=== PATIENT | male | born 1940 | race Caucasian/White ===

== ENCOUNTER → 2018-03-30 | Outpatient (CLI) | payer OTHER ==
--- NOTE | ~2018-03-30 | EKG ---
[place] [address] [facility] [employer] [place] [address] ELECTROCARDIOGRAM REPORT Name: MIR LONGORIA Room #: REG CLI [facility].#: [id number] Admission: 03/30/18 Attend Phys: Gail Fisher MD Discharge: Date of : 44 Report #: [id number] THIS REPORT FOR: //name// [facility] Test Date: 2018-03-30 Test Time: 11:59:48 Pat Name: MIR HIGUERA Department: Room: Gender: Face Hardener: Ravin CASIANO : 1940 Requested By: Gail Fisher Order Number: [id number] MD: Georgi Gomez Measurements Intervals [place] Rate: 74 P: 50 AR: 200 QRS: 263 QRSD: 94 T: 41 QT: 381 QTc: 423 Interpretive Statements Sinus rhythm Inferior infarct, old No previous ECG available for comparison Electronically Signed On 04-02-2018 7:55:26 CDT by Georgi Gomez [email or web address] <ELECTRONICALLY SIGNED> By: Georgi Gomez MD, [facility] 04/02/18 [id number] Georgi Gomez MD, FACC /EPI
[2018-03-30 11:38] LABS: HEMATOCRIT 48.8 % (42.0-52.0); HEMOGLOBIN 16.7 gm/dL (14.0-18.0); MCH 34.3 pg (26.0-34.0); MCHC 34.2 g/dL (28.0-37.0); MCV 100.2 fL (80.0-100.0); RBC 4.87 mil/uL (4.50-6.00); RDW 15.2 % (10.5-14.5); WBC 4.1 thou/uL (4.0-11.0)
[2018-03-30 11:56] LABS: ALBUMIN 3.9 g/dL (3.4-5.0); CALCIUM 9.3 mg/dL (8.5-10.1); CREATININE 1.5 mg/dL (0.7-1.3); MAGNESIUM 1.8 mg/dL (1.8-2.4); POTASSIUM 4.5 mmol/L (3.5-5.1); TOTAL BILIRUBIN 0.5 mg/dL (<0.1-1.0); TOTAL PROTEIN 7.2 g/dL (6.4-8.2)
== END ==
LOC: LABMALL 11:04
PROVIDERS: Internal Medicine Pulmonary Disease
DX: J32.9 Chronic sinusitis, unspecified (principal); J20.8 Acute bronchitis due to other specified organisms; J45.40 Moderate persistent asthma, uncomplicated; M47.812 Spondylosis without myelopathy or radiculopathy, cervical region

== ENCOUNTER → 2020-01-29 | Outpatient (CLI) | payer OTHER | LOC: CAT 01-20 14:56 | DX: J84.10 Pulmonary fibrosis, unspecified (principal); R91.8 Other nonspecific abnormal finding of lung field; I25.10 Atherosclerotic heart disease of native coronary artery without angina pectoris; K76.89 Other specified diseases of liver ==